=== PATIENT | female | born 1995 | race Caucasian/White ===

== ENCOUNTER 2024-08-12 20:58 | Emergency (ER) | payer MEDICAID ==
[~2024-08-12] VITALS: Ht 162.6 cm; Wt 91.0 kg
[2024-08-12 21:19] VITALS: O2SAT 97
[2024-08-12 21:38] LABS: CLARITY URINE CLEAR (CLEAR); COLOR URINE YELLOW (YELLOW); GLUCOSE URINE NEGATIVE (NEGATIVE); KETONES URINE TRACE (NEGATIVE); LEUKOCYTE ESTERASE URINE 2+ (NEGATIVE); NITRITE URINE NEGATIVE (NEGATIVE); OCCULT BLOOD URINE NEGATIVE (NEGATIVE); PROTEIN URINE NEGATIVE (NEGATIVE); SPECIFIC GRAVITY URINE 1.025 (1.005-1.030)
[2024-08-12 22:03] LABS: BACTERIA URINE TRACE; SQUAMOUS EPITHELIAL CELL URINE FEW /lpf (RARE/1+)
[2024-08-13] MEDS ORDERED: NITR100C MT (00:14)
[2024-08-13] MEDS ORDERED: FLUC150T46 MT (00:14)
[2024-08-13 00:27] VITALS: BP 132/80; PULSE 72; RESP 16; TEMP 36.78072; O2SAT 97
[2024-08-15 04:08] LABS: CHLAMYDIA TRACHOMATIS NAA Negative (Negative); NEISSERIA GONORRHOEAE NAA Negative (Negative)
== END 2024-08-13 00:28 | disposition home or self-care (01) ==
LOC: ER 20:58
DX: B37.31 Acute candidiasis of vulva and vagina (principal); N39.0 Urinary tract infection, site not specified; Z11.3 Encounter for screening for infections with a predominantly sexual mode of transmission
CPT/HCPCS: 81003; 81025; 87106; 87210; 87491; 87591; 99283